=== PATIENT | male | born 1950 | race Native Hawaiian/Other Pacific Islander ===

== ENCOUNTER 2016-08-28 05:31 | Outpatient (CLI) | payer OTHER ==
[2016-08-28] MEDS ORDERED: ATENOLOL100 M1 PO (05:49)
[2016-08-28] MEDS ORDERED: POTASSIUM25 MEQ OR (05:50)
[2016-08-28] MEDS ORDERED: AMLO2.5T PO (05:51)
[2016-08-28] MEDS ORDERED: ZESTRIL40 MG OR (05:51)
[2016-08-28] MEDS ORDERED: GLIP10TA55 PO (05:52)
[2016-08-28] MEDS ORDERED: CVS OMEPRAZOLE20 MG OR (05:52)
[2016-08-28] MEDS ORDERED: HYDR12.54 (05:53)
[2016-08-28] MEDS ORDERED: FORTAMET1000 MG PO (05:53)
[2016-08-28] MEDS ORDERED: SERT100T PO (05:54)
[2016-08-28] MEDS ORDERED: PRAVACHOL20 MG PO (05:54)
[2016-08-28] MEDS ORDERED: ASA LOW DOSE81 MG OR (05:55)
[2016-08-28] MEDS ORDERED: OLANZAPINE5 M1 OR (05:57)
[2016-08-28] MEDS ORDERED: IBUPROFEN200 M1 PO (05:58)
[2016-08-28] MEDS ORDERED: ACET-689 PO (05:59)
[2016-08-28] MEDS ORDERED: DONE5TAB PO (06:00)
[2016-08-28] MEDS ORDERED: LEXAPRO20 MG OR (06:01)
[2016-08-28] MEDS ORDERED: NAMENDA10 MG PO (06:02)
[2016-08-28] MEDS ORDERED: ABILIFY5 MG PO (06:02)
== END 2016-08-28 05:35 | disposition short-term general hospital (02) ==
LOC: AMB 05:31
DX: R55 Syncope and collapse (principal)
CPT/HCPCS: A0425; A0427

== ENCOUNTER 2016-08-28 05:36 | Emergency (ER) | payer OTHER ==
[~2016-08-28] VITALS: Ht 182.9 cm; Wt 107.0 kg
[2016-08-28] MEDS ORDERED: ATENOLOL100 M1 PO (05:49)
[2016-08-28] MEDS ORDERED: POTASSIUM25 MEQ OR (05:50)
[2016-08-28] MEDS ORDERED: AMLO2.5T PO (05:51)
[2016-08-28] MEDS ORDERED: ZESTRIL40 MG OR (05:51)
[2016-08-28] MEDS ORDERED: CVS OMEPRAZOLE20 MG OR (05:52)
[2016-08-28] MEDS ORDERED: GLIP10TA55 PO (05:52)
[2016-08-28] MEDS ORDERED: FORTAMET1000 MG PO (05:53)
[2016-08-28] MEDS ORDERED: HYDR12.54 (05:53)
[2016-08-28] MEDS ORDERED: SERT100T PO (05:54)
[2016-08-28] MEDS ORDERED: PRAVACHOL20 MG PO (05:54)
[2016-08-28] MEDS ORDERED: ASA LOW DOSE81 MG OR (05:55)
[2016-08-28] MEDS ORDERED: OLANZAPINE5 M1 OR (05:57)
[2016-08-28] MEDS ORDERED: IBUPROFEN200 M1 PO (05:58)
[2016-08-28] MEDS ORDERED: ACET-689 PO (05:59)
[2016-08-28] MEDS ORDERED: DONE5TAB PO (06:00)
[2016-08-28] MEDS ORDERED: LEXAPRO20 MG OR (06:01)
[2016-08-28] MEDS ORDERED: ABILIFY5 MG PO (06:02)
[2016-08-28] MEDS ORDERED: NAMENDA10 MG PO (06:02)
[2016-08-28 06:17] LABS: POTASSIUM 3.3 mmol/L (3.6-5.2)
[2016-08-28 06:29] LABS: PLATELET COUNT 165 K/uL (142-355)
[2016-08-28 06:55] VITALS: BP 115/77; TEMP 98.4
== END 2016-08-28 06:55 | disposition home or self-care (01) ==
LOC: ED 05:36
DX: R55 Syncope and collapse (principal)
CPT/HCPCS: 80053; 85027; 93005; 96360; 99284